=== PATIENT | female | born 1955 | race Caucasian/White ===

== ENCOUNTER 2022-01-18 21:58 | Emergency (ER) | payer MEDICARE, OTHER, MEDICAID, SELFPAY ==
[2022-01-18 22:07] VITALS: BP 176/84; PULSE 73; RESP 20; TEMP 36.8; O2SAT 98; BMI 28.3
[2022-01-18 22:19] VITALS: PULSE 75; O2SAT 98
--- NOTE | 2022-01-18 22:20 | DI.RAD.S_ITS ---
PROCEDURE: XR CHEST 1V INDICATIONS: chest pain TECHNIQUE: One view of the chest was acquired. COMPARISON: None. FINDINGS: Surgical changes and devices: None. Lungs and pleura: Lungs are clear. No pleural effusions or pneumothorax. Mediastinum: Mediastinal contours appear normal. Heart size is normal. Bones and chest wall: No suspicious bony lesions. Overlying soft tissues appear unremarkable. IMPRESSION: 1. No acute cardiopulmonary disease. Dictated by: Robbi Card M.D. on 01/18/2022 at 23:21 Approved by: Robbi Card M.D. on 01/18/2022 at 23:22
[2022-01-18 22:30] VITALS: BP 180/104; PULSE 75; O2SAT 99
[2022-01-18 22:39] LABS: Add Manual Diff / Slide Review NO; Basophils Absolute Auto 0 /uL (0-100); Basophils Percent Auto 0.3 % (0-2); Eosinophils Absolute Auto 0 /uL (0-450); Eosinophils Percent Auto 0.5 % (2-4); Hematocrit 27.5 % (36-46); Hemoglobin 9.5 g/dL (12.0-16.0); Lymphocytes Absolute Auto 2400 /uL (1100-4500); Lymphocytes Percent Auto 23.9 % (25-40); Mean Corpuscular HGB Conc 34.7 % (30-36); Mean Corpuscular Hemoglobin 29.8 PG (26-34); Mean Corpuscular Volume 85.9 fL (80-100); Monocytes Absolute Auto 600 /uL (0-900); Monocytes Percent Auto 6.6 % (3-14); Neutrophils Absolute Auto 6800 /uL (1500-7000); Neutrophils Percent Auto 68.7 % (50-75); Platelet Count 157 X10^3/uL (150-400); White Blood Cell Count 9.9 X10^3/uL (4.5-11.0)
[2022-01-18] MEDS: ONDANSETRON 4 MG/2 ML INJ IV (22:39)
--- NOTE | 2022-01-18 22:58 | ED.CHESTPAIN ---
HPI - Chest Pain General Chief Complaint: Chest Pain Stated Complaint: chest pain Time Seen by Provider: 01/18/22 22:32 Source: patient and EMS Mode of arrival: Ambulatory Limitations: no limitations History of Present Illness HPI narrative: Patient is a 66-year-old female who arrives the emergency department for chest discomfort. Initially reported that the patient had been admitted to an outside facility and was discharged earlier today. Under the circumstances that admission. Patient states that she was admitted at another facility. She states she was in the ICU. She states she was in kidney failure. She stated that she had a PICC line in her left arm but it was removed earlier today and she was discharged from the hospital. She went back to [facility] to get her ?work stuff ?in as she was getting off of the [place] she started to have chest discomfort. Very difficult to get an exact history from the patient. She is tangential in her answers and seems to be confused about why she was admitted at the outside facility. When asked about the PICC line if she had had infection she said ?I think so ?it she does not know if she was on any antibiotics she stated that she was not discharged with any medications. She currently is not having chest pain. She states she is having a headache. No shortness of breath. Related Data Allergies Allergy/AdvReac Type Severity Reaction Status Date / Time No Known Drug Allergies Allergy Verified 01/18/22 22:21 Review of Systems Review of Systems ROS Unobtainable: All systems reviewed & are unremarkable except as noted in HPI and below Constitutional Constitutional: Denies fever(s) and Reports headache(s) Eyes Eyes: Reports system reviewed and no additional complaints, except as documented ENT Ears, Nose, Mouth, and Throat: Denies vertigo, Reports dizziness and Reports headache(s) Cardiovascular Cardiovascular: Reports chest pain, Denies rapid heart rate, Denies lightheadedness and Denies dyspnea Respiratory Respiratory: Denies cough and Denies dyspnea Gastrointestinal Gastrointestinal: Denies abdominal pain, Reports nausea and Denies vomiting Genitourinary Genitourinary: Denies dysuria Musculoskeletal Musculoskeletal: Reports myalgias Integumentary/Breasts Skin/Breast: Reports system reviewed and no additional complaints, except as documented Neurologic Neurologic: Denies vertigo, Reports dizziness and Reports headache(s) Hematologic/Lymphatic On Anticoagulants: No Allergic/Immunologic Allergic/Immunologic: Reports system reviewed and no additional complaints, except as documented Patient History Medical History Chronic kidney disease Social History Smoking Status: Former smoker Smoking Status: Former smoker tobacco type: cigars Substance Use Type: does not use Exam Initial Vital Signs Initial Vital Signs: Vital Signs Temperature 98.3 F 01/18/22 22:07 Pulse Rate 73 01/18/22 22:07 Respiratory Rate 20 01/18/22 22:07 Blood Pressure 176/84 H 01/18/22 22:07 Pulse Oximetry 98 01/18/22 22:07 Oxygen Delivery Method 01/18/22 22:07 Const General: cooperative, No acute distress, disheveled and No ill appearing HENMT Head: normal to inspection and normocephalic Eyes General: Yes appearance normal, both eyes and all related structures Resp Effort & Inspection: normal respiratory effort Auscultation: clear to auscultation bilaterally Cardio Rate: regular rate Rhythm: regular rhythm GI Inspection: normal to inspection Skin General: no rashes or lesions noted Neuro General: patient alert, patient awake, gait normal and moves all extremities Cognition: abnormal cognition (Seems confused about prior hospital visit) Speech: speech normal Gait: normal gait Extrem General: normal to inspection and No edema Psych Appearance: disheveled Speech and Movement: speech and movement normal Thought Process: circumstantial and tangential Course Orders Ordered: ED Orders 01/18/22 22:20 XR chest 1V Stat EKG-12 Lead Stat 01/18/22 22:25 Complete Blood Count AUTO DIFF Stat Comprehensive Metabolic Panel Stat Lipase Stat Magnesium Stat Troponin & CK Cardiac Panel Stat 01/19/22 01:30 Troponin & CK Cardiac Panel Stat 01/19/22 04:27 Troponin & CK Cardiac Panel Stat Discontinued Medications Ondansetron HCl (Ondansetron 4 Mg/2 Ml Inj) 4 mg IV NOW ONE Stop: 01/18/22 22:36 Last Admin: 01/18/22 22:39 Dose: 4 mg Documented By: CIERA Vital Signs Vital signs: Vital Signs - 8 hr 01/18/22 22:07 01/18/22 22:19 01/18/22 22:30 Temperature 98.3 F Pulse Rate 73 75 Respiratory Rate 20 Blood Pressure 176/84 H 180/104 H Pulse Oximetry 98 98 Oxygen Delivery Method Room Air Room Air 01/18/22 22:30 01/18/22 23:11 01/18/22 23:15 Temperature Pulse Rate 75 87 Respiratory Rate Blood Pressure 164/77 H Pulse Oximetry 99 98 Oxygen Delivery Method 01/18/22 23:15 01/18/22 23:30 01/18/22 23:30 Temperature Pulse Rate 73 70 Respiratory Rate 14 14 Blood Pressure 153/67 H Pulse Oximetry 98 96 Oxygen Delivery Method 01/19/22 00:00 01/19/22 00:00 01/19/22 00:30 Temperature Pulse Rate 69 Respiratory Rate 14 Blood Pressure 140/67 140/66 Pulse Oximetry 97 Oxygen Delivery Method 01/19/22 00:30 01/19/22 01:00 01/19/22 01:00 Temperature Pulse Rate 68 65 Respiratory Rate 18 16 Blood Pressure 146/69 H Pulse Oximetry 97 97 Oxygen Delivery Method 01/19/22 01:30 01/19/22 02:00 01/19/22 02:30 Temperature Pulse Rate 76 68 77 Respiratory Rate 22 14 22 Blood Pressure Pulse Oximetry 96 97 98 Oxygen Delivery Method 01/19/22 03:00 01/19/22 03:12 01/19/22 03:12 Temperature Pulse Rate 66 68 Respiratory Rate 14 16 Blood Pressure 116/56 L Pulse Oximetry 98 99 Oxygen Delivery Method Room Air 01/19/22 03:30 01/19/22 03:31 01/19/22 03:31 Temperature Pulse Rate 62 63 Respiratory Rate 18 18 Blood Pressure 106/51 L Pulse Oximetry 97 97 Oxygen Delivery Method 01/19/22 04:00 01/19/22 04:00 01/19/22 04:30 Temperature Pulse Rate 62 55 L Respiratory Rate 20 19 Blood Pressure 113/54 L Pulse Oximetry 97 99 Oxygen Delivery Method 01/19/22 04:31 01/19/22 04:31 01/19/22 05:00 Temperature Pulse Rate 64 Respiratory Rate 13 Blood Pressure 100/52 L 116/56 L Pulse Oximetry 97 Oxygen Delivery Method 01/19/22 05:00 Temperature Pulse Rate 62 Respiratory Rate 18 Blood Pressure Pulse Oximetry 97 Oxygen Delivery Method Room Air MDM - Chest Pain Lab Data Attestation: I reviewed the patient's lab results. Result diagrams: 01/18/22 22:25 01/18/22 22:25 Labs: Lab Results 01/18/22 01/18/22 01/19/22 Range/Units 22:25 22:25 01:30 WBC 9.9 (4.5-11.0) X10^3/uL RBC 3.20 L (4.0-5.2) X10^6/uL Hgb 9.5 L (12.0-16.0) g/dL Hct 27.5 L (36-46) % MCV 85.9 (80-100) fL MCH 29.8 (26-34) PG MCHC 34.7 (30-36) % RDW 14.0 (11.6-14.8) % Plt Count 157 (150-400) X10^3/uL Neut % (Auto) 68.7 (50-75) % Lymph % (Auto) 23.9 L (25-40) % [place] % (Auto) 6.6 (3-14) % Eos % (Auto) 0.5 L (2-4) % Baso % (Auto) 0.3 (0-2) % Neut # (Auto) 6800 (4124-9756) /uL Lymph # (Auto) 2400 (7498-2441) /uL [place] # (Auto) 600 (0-900) /uL Eos # (Auto) 0 (0-450) /uL Baso # (Auto) 0 (0-100) /uL Sodium 138 (137-145) mmol/L Potassium 3.6 (3.4-5.1) mmol/L Chloride 103 (98-107) mmol/L Carbon Dioxide 30 (22-32) mmol/L BUN 16 (7-17) mg/dL Creatinine 1.29 H (0.52-1.04) mg/dL Estimated GFR 46 L (>60) mL/min BUN/Creatinine Ratio 12.4 (6-22) Glucose 81 (80-110) mg/dL Calcium 7.4 L (8.4-10.2) mg/dL Magnesium 1.5 L (1.6-2.3) mg/dL Total Bilirubin 0.4 (0.2-1.3) mg/dL AST 42 H (14-36) IU/L ALT 22 (<35) IU/L Alkaline Phosphatase 56 (38-126) U/L Total Creatine Kinase 178 H 156 H (30-135) U/L CK-MB (CK-2) 1.14 1.01 (<2.37) ng/mL CK-MB (CK-2) Rel Index 0.6 L 0.6 L (1.5-5.0) % Troponin I 0.034 0.034 (0.01-0.034) ng/mL Total Protein 6.8 (6.3-8.2) g/dL Albumin 3.9 (3.5-5.0) g/dL Globulin 2.9 (1.7-4.1) g/dL Albumin/Globulin Ratio 1.3 (1.0-2.8) Lipase 88 (23-300) U/L 01/19/22 Range/Units 04:27 WBC (4.5-11.0) X10^3/uL RBC (4.0-5.2) X10^6/uL Hgb (12.0-16.0) g/dL Hct (36-46) % MCV (80-100) fL MCH (26-34) PG MCHC (30-36) % RDW (11.6-14.8) % Plt Count (150-400) X10^3/uL Neut % (Auto) (50-75) % Lymph % (Auto) (25-40) % [place] % (Auto) (3-14) % Eos % (Auto) (2-4) % Baso % (Auto) (0-2) % Neut # (Auto) (5953-6806) /uL Lymph # (Auto) (9863-4139) /uL [place] # (Auto) (0-900) /uL Eos # (Auto) (0-450) /uL Baso # (Auto) (0-100) /uL Sodium (137-145) mmol/L Potassium (3.4-5.1) mmol/L Chloride (98-107) mmol/L Carbon Dioxide (22-32) mmol/L BUN (7-17) mg/dL Creatinine (0.52-1.04) mg/dL Estimated GFR (>60) mL/min BUN/Creatinine Ratio (6-22) Glucose (80-110) mg/dL Calcium (8.4-10.2) mg/dL Magnesium (1.6-2.3) mg/dL Total Bilirubin (0.2-1.3) mg/dL AST (14-36) IU/L ALT (<35) IU/L Alkaline Phosphatase (38-126) U/L Total Creatine Kinase 128 (30-135) U/L CK-MB (CK-2) 0.91 (<2.37) ng/mL CK-MB (CK-2) Rel Index 0.7 L (1.5-5.0) % Troponin I 0.027 (0.01-0.034) ng/mL Total Protein (6.3-8.2) g/dL Albumin (3.5-5.0) g/dL Globulin (1.7-4.1) g/dL Albumin/Globulin Ratio (1.0-2.8) Lipase (23-300) U/L Urine Dip Bedside Urine Glucose 100 mg/dl Bedside Urine Bilirubin - Negative Bedside Urine Ketone - Negative Urine Specific [place] 1.015 Bedside Urine Occult Blood - Negative Bedside Urine pH 7 Bedside Urine Protein - Negative Bedside Urine Urobilinogen - Negative Bedside Urine Nitrite - Negative Bedside Urine Leukocytes - Negative Esterase Imaging Data Chest x-ray: Radiologist's Impression: [address] [address] XRay Report Signed Patient: Sofi Amor MR#: [id number] : 1955 Acct:[id number] Age/Sex: 66 / F Date of Service: 01/18/22 Loc: Accession Number: [id number] ?? Procedure: XR chest 1V Ordering Provider: Raffi Dewey D.O. PROCEDURE:? XR CHEST 1V ? INDICATIONS:? chest pain ? TECHNIQUE:? One view of the chest was acquired.? ? COMPARISON:? None. ? FINDINGS:? ? Surgical changes and devices:? None.? ? Lungs and pleura:? Lungs are clear.? No pleural effusions or pneumothorax.? ? Mediastinum:? Mediastinal contours appear normal.? Heart size is normal.? ? Bones and chest wall:? No suspicious bony lesions.? Overlying soft tissues appear unremarkable.? ? IMPRESSION:? ? 1.? No acute cardiopulmonary disease. ? ? Dictated by: Robbi Card M.D. on 01/18/2022 at 23:21 ? ? Approved by: Robbi Card M.D. on 01/18/2022 at 23:22 ECG Data Attestation: I personally reviewed and interpreted this ECG as follows: Interpretation: Sinus rhythm Ventricular rate is 71 Normal axis QRS Normal QTC No ST T wave changes MDM Narrative Medical decision making narrative: Patient's chest pain resolved prior to arrival here in the ER. Her EKG is unremarkable. Troponins have been unchanged x3. Her chest x-ray is unremarkable. I was able to obtain some records from the prior hospital visit her she states she was discharged on the day that she here in the ER. His records were someone on helpful. Was only the emergency department record and then a progress note. Apparently she was admitted to the hospital for acute kidney injury and hypotension. Her acute kidney injury responded to fluids. Apparently there was some question about adrenal insufficiency however I do not have the results of any of the testing with this. There was no indication of any infection. When asked about this that the whether not the patient left against medical advice she stated that it was a ?mutual decision ?she states that things were ?frantic ?at the hospital. She seemed concern of by the amount of blood that was being taken for the laboratory studies. She stated that it was difficult to get any of her questions answered. She did state that yesterday was very hectic from being discharged from the hospital to going back to [facility] to then coming back to the local area. Given her presentation today there is no indication for readmission to the hospital. Will discharge home with return precautions. She expressed understanding and agreement. Discharge Plan Departure Patient Disposition: Home Clinical Impression: Atypical chest pain Activity Restrictions/Additional Instructions: I recommend that you continue any medications as directed. It is important that you make contact with the primary doctor for a follow-up or ever you end up after leaving [facility]. Return to the emergency department for any new or worsening symptoms.
[2022-01-18 23:07] LABS: Creatine Kinase 178 U/L (30-135)
[2022-01-18 23:08] LABS: BUN Creatinine Ratio 12.4 (6-22); Blood Urea Nitrogen 16 mg/dL (7-17); CKMB % Relative Index 0.6 % (1.5-5.0); Carbon Dioxide 30 mmol/L (22-32); Chloride 103 mmol/L (98-107); Creatine Kinase MB 1.14 ng/mL (<2.37); Estimated Glomerular Filt Rate 46 mL/min (>60); Potassium 3.6 mmol/L (3.4-5.1); Sodium 138 mmol/L (137-145); Troponin I 0.034 ng/mL (0.01-0.034)
[2022-01-18 23:09] LABS: Alanine Aminotransferase 22 IU/L (<35); Alkaline Phosphatase 56 U/L (38-126); Aspartate Aminotransferase 42 IU/L (14-36); Bilirubin Total 0.4 mg/dL (0.2-1.3); Calcium 7.4 mg/dL (8.4-10.2); Glucose 81 mg/dL (80-110); Magnesium 1.5 mg/dL (1.6-2.3)
[2022-01-18 23:10] LABS: Albumin 3.9 g/dL (3.5-5.0); Albumin Globulin Ratio 1.3 (1.0-2.8); Globulin 2.9 g/dL (1.7-4.1); HEMOLYSIS < 15 (0-50); Lipase 88 U/L (23-300); Total Protein 6.8 g/dL (6.3-8.2)
[2022-01-18 23:11] VITALS: PULSE 87; O2SAT 98
[2022-01-18 23:15] VITALS: BP 164/77; PULSE 73; RESP 14; O2SAT 98
[2022-01-18 23:30] VITALS: BP 153/67; PULSE 70; RESP 14; O2SAT 96
[2022-01-19] VITALS (14 sets, daily range): BP systolic 100–146; BP diastolic 51–69; PULSE 55–77; RESP 13–22; O2SAT 96–99
[2022-01-19 02:06] LABS: Creatine Kinase 156 U/L (30-135); Troponin I 0.034 ng/mL (0.01-0.034)
[2022-01-19 02:08] LABS: CKMB % Relative Index 0.6 % (1.5-5.0); Creatine Kinase MB 1.01 ng/mL (<2.37)
[2022-01-19 05:13] LABS: CKMB % Relative Index 0.7 % (1.5-5.0); Creatine Kinase 128 U/L (30-135); Creatine Kinase MB 0.91 ng/mL (<2.37); Troponin I 0.027 ng/mL (0.01-0.034)
== END 2022-01-19 06:00 | disposition home or self-care (01) ==
PROVIDERS: Emergency Provider Emergency Medicine
DX: R07.89 Other chest pain (principal)
CPT/HCPCS: 36415; 71045; 80053; 81003; 82550; 82553; 83690; 83735; 84484; 85025; 93005; 93010; 96374; 99284; J2405